=== PATIENT | female | born 2005 | race Hispanic/Latino ===

== ENCOUNTER 2025-01-20 15:12 | Outpatient (CLI) | payer OTHER | END 2025-01-20 15:13 | disposition home or self-care (01) | LOC: CSHULT 15:12 | PROVIDERS: ATTEND Family Medicine | DX: O45.90 Premature separation of placenta, unspecified, unspecified trimester (principal); Z86.2 Personal history of diseases of the blood and blood-forming organs and certain disorders involving the immune mechanism | CPT/HCPCS: 76856 ==